=== PATIENT | male | born 2005 | race Hispanic/Latino ===

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

== ENCOUNTER 2023-04-02 16:04 | Emergency (ER) | payer OTHER, SELFPAY ==
[2023-04-02 16:05] VITALS: BP 133/74; PULSE 70; RESP 14; TEMP 36.8; O2SAT 99
--- NOTE | 2023-04-02 17:57 | ED.EYEPROB ---
HPI - Eye Problem General Chief complaint: Eye Problems Stated complaint: Trash in right eye Time Seen by Provider: 04/02/23 17:05 Source: patient Mode of arrival: ambulatory Limitations: no limitations History of Present Illness HPI Narrative: This is a 17 year old male that presents to the ER for foreign body in the right eye. Reports he was cutting a piece of plastic with a saw for a bathtub. He was wearing glasses, but still got a piece in his eye. Reports before I saw him he was able to remove it. Still has some mild irritation in the corner of his eye. Denies vision changes. Related Data Allergies Allergy/AdvReac Type Severity Reaction Status Date / Time No Known Allergies Allergy Verified 04/02/23 16:04 Review of Systems Review of Systems: CONSTITUTIONAL: Denies fever EYES: Denies visual changes, redness, or discharge. All systems reviewed & are unremarkable except as noted in HPI and below PMFSH Past Medical History Medical History (Updated 04/02/23 @ 18:04 by Glenda Tamez PA-C) No active medical problems Social History Social History (Updated 04/02/23 @ 18:01 by Glenda Tamez PA-C) Smoking status: Never smoker Exam Narrative: GENERAL: Well-appearing, well-nourished, and in no acute distress. HEAD: Normocephalic, atraumatic. EYES: PERRLA and EOMI. Eyelid everted, no foreign body noted. No abnormal fluorescein stain uptake. Visual acuity 20/20 bilaterally EXTREMITIES: Normal range of motion. No edema. SKIN: Warm, dry, no rash. NEURO: No focal deficits. Alert and oriented x3. PSYCH: Normal mood and affect Course Course Emergency Course: patient agrees with plan of care Vital Signs Vital signs: Vital Signs Temperature 98.3 F 04/02/23 16:05 Pulse Rate 70 04/02/23 16:05 Respiratory Rate 14 04/02/23 16:05 Blood Pressure 133/74 04/02/23 16:05 Pulse Oximetry 99 04/02/23 16:05 Oxygen Delivery Room Air 04/02/23 16:05 Temperature 98.3 F 04/02/23 16:05 Pulse Rate 70 04/02/23 16:05 Respiratory Rate 14 04/02/23 16:05 Blood Pressure 133/74 04/02/23 16:05 Pulse Oximetry 99 04/02/23 16:05 Oxygen Delivery Room Air 04/02/23 16:05 MDM - Eye Problem MDM Narrative Medical decision making narrative: Patient presents to the ER for foreign body in the eye. Had a small piece of plastic that he was actually able to remove before I saw him. No abrasions noted on fluorescein stain exam. His visual acuity is normal. Will be started on prophylactic antibiotic ointment. He is to follow up with his eye doctor. He was given warnings to return to the ER Differential Diagnosis Differential diagnosis: Likely corneal abrasion, conjunctivitis and other (foreign body) Critical Care Time Critical Care Time Critical Care Time: No Discharge Plan Discharge Clinical Impression: Foreign body in eye Qualifiers: Encounter type: initial encounter Laterality: right Qualified Code(s): T15.91XA - Foreign body on external eye, part unspecified, right eye, initial encounter Patient Disposition: Home, Self-Care Condition: Stable Instructions: Antibiotic Form, Eye Foreign Body (ED) Additional Instructions: Return to the ER if you experience fever, vision changes, redness and swelling of your eye, or any other symptoms that are concerning to you Apply antibiotic ointment 4 times daily for the next 3 days Follow up with your eye doctor Prescriptions: New erythromycin 5 mg/gram (0.5 %) ointment 1 applic RIGHT EYE Q6H 3 Days Qty: 3.5 0RF No Action doxycycline hyclate 100 mg tablet 100 mg PO BID Qty: 14 0RF Follow-up/Referrals: Jeremy,MD Noah [Primary Care Provider] -
[2023-04-02] MEDS: ERYTHROMYCIN OPHTH OINTMENT 1 GM TUBE 1 APPLIC RIGHT EYE (18:16)
== END 2023-04-02 18:29 | disposition home or self-care (01) ==
PROVIDERS: Emergency Provider Physician Assistant; PCP Pediatrics
DX: T15.91XA Foreign body on external eye, part unspecified, right eye, initial encounter (principal)
CPT/HCPCS: 99283; A9270